=== PATIENT | female | born 2000 | race Caucasian/White ===

== ENCOUNTER 2021-03-29 22:00 | Emergency (ER) | payer MEDICAID, OTHER ==
[~2021-03-29] VITALS: Ht 167.6 cm; Wt 72.6 kg
[2021-03-29 22:00] VITALS: BP 103/78
--- NOTE | 2021-03-29 22:03 | NUR ---
TO LOBBY A/W BED AMBULATORY
[2021-03-29] MEDS ORDERED: ONDANSETRON 4 MG ODT PO ONE (23:55)
[2021-03-30] MEDS ORDERED: LOPE-289 PO (00:25)
[2021-03-30] MEDS ORDERED: IBUP-2213 PO (00:25)
[2021-03-30] MEDS ORDERED: ONDA8TAB87 PO (00:25)
[2021-03-30 00:50] VITALS: BP 103/78
--- NOTE | 2021-03-30 00:50 | NUR ---
Patient discharged with v/s stable. Written and verbal after care instructions given and explained. Patient alert, oriented and verbalized understanding of instructions. Ambulatory with steady gait. All questions addressed prior to discharge. ID band removed. Patient advised to follow up with PMD. Rx of MOTRIN, IMODIUM, ZOFRAN given. Patient educated on indication of medication including possible reaction and side effects. Opportunity to ask questions provided and answered.
== END 2021-03-30 00:50 | disposition home or self-care (01) ==
LOC: MED 22:00
DX: R19.7 Diarrhea, unspecified (principal); R11.0 Nausea; R10.9 Unspecified abdominal pain; Z88.0 Allergy status to penicillin
CPT/HCPCS: 99283; Q0162

== ENCOUNTER 2022-02-27 19:44 | Emergency (ER) | payer OTHER ==
[~2022-02-27] VITALS: Ht 167.6 cm; Wt 70.3 kg
[~2022-02-27 19:44] MED LIST: IBUP-2213 PO; LOPE-289 PO; ONDA8TAB87 PO
[2022-02-27 20:00] VITALS: BP 126/86
--- NOTE | 2022-02-27 20:03 | NUR ---
TO LOBBY A/W BED AMBULATORY
--- NOTE | 2022-02-27 20:06 | NUR ---
SEEN AND EXAMINED BY DAVID
[2022-02-27] MEDS ORDERED: TOBR5SOL17 RIGHT EYE (20:08)
[2022-02-27 20:45] VITALS: BP 120/79
--- NOTE | 2022-02-27 20:45 | NUR ---
Patient discharged with v/s stable. Written and verbal after care instructions given and explained. Patient alert, oriented and verbalized understanding of instructions. Ambulatory with steady gait. All questions addressed prior to discharge. ID band removed. Patient advised to follow up with PMD. Rx of TOBRAMYCIN given. Patient educated on indication of medication including possible reaction and side effects. Opportunity to ask questions provided and answered.
== END 2022-02-27 20:45 | disposition home or self-care (01) ==
LOC: MED 19:44
DX: H00.011 Hordeolum externum right upper eyelid (principal); Z88.0 Allergy status to penicillin; Z79.899 Other long term (current) drug therapy
CPT/HCPCS: 99283

== ENCOUNTER 2022-04-14 14:35 | Emergency (ER) | payer OTHER ==
[~2022-04-14] VITALS: Ht 167.6 cm; Wt 65.8 kg
[~2022-04-14 14:35] MED LIST changes: +TOBR5SOL17 RIGHT EYE
[2022-04-14 14:46] VITALS: BP 110/67
--- NOTE | 2022-04-14 15:08 | NUR ---
BIB SELF C/O COUGH, 6/10 SORE THROAT,HEADACHE , BODY PAIN X 2 DAYS. COVID TESTED NEGATIVE TODAY.
[2022-04-14] MEDS ORDERED: BENZ-300 PO (16:12)
[2022-04-14] MEDS ORDERED: PROM118S5 PO (16:12)
[2022-04-14] MEDS ORDERED: IBUP-2213 PO (16:12)
--- NOTE | 2022-04-14 16:51 | NUR ---
SWABBED AND WALKED TO LAB
[2022-04-14 17:21] VITALS: BP 109/70
--- NOTE | 2022-04-14 17:22 | NUR ---
Patient discharged with v/s stable. Written and verbal after care instructions given and explained. Patient verbalized understanding. Ambulatory with steady gait. All questions addressed prior to discharge. Advised to follow up with PMD.
== END 2022-04-14 17:22 | disposition home or self-care (01) ==
LOC: MED 14:35
DX: J06.9 Acute upper respiratory infection, unspecified (principal); Z88.0 Allergy status to penicillin; Z79.899 Other long term (current) drug therapy
CPT/HCPCS: 87081; 99283

== ENCOUNTER 2023-03-29 12:17 | Emergency (ER) | payer OTHER ==
[~2023-03-29] VITALS: Ht 167.6 cm; Wt 62.8 kg
[~2023-03-29 12:17] MED LIST changes: +BENZ-300 PO; +PROM118S5 PO; -TOBR5SOL17 RIGHT EYE; +TOBR5SOL38 RIGHT EYE
[2023-03-29 12:28] VITALS: BP 124/69; PULSE 103; RESP 20; TEMP 97.7; O2SAT 97
[2023-03-29] MEDS ORDERED: NIRM1TAB5 PO (14:07)
[2023-03-29 14:22] VITALS: BP 122/67; PULSE 96; RESP 18; TEMP 98; O2SAT 97
== END 2023-03-29 14:22 | disposition home or self-care (01) ==
LOC: MED 12:17
DX: U07.1 COVID-19 (principal); Z88.0 Allergy status to penicillin; Z79.899 Other long term (current) drug therapy
CPT/HCPCS: 99283